=== PATIENT | female | born 1985 | race Caucasian/White ===

== ENCOUNTER 2024-02-11 11:40 | Emergency (ER) | payer BC, SELFPAY ==
[2024-02-11 11:49] VITALS: BP 134/95
[2024-02-11 12:28] VITALS: BMI 34.4
[2024-02-11 12:32] VITALS: BP 127/75
[2024-02-11 12:47] LABS: % Basophils 0.3 % (0-2); % Eosinophils 0.4 % (0-6); % Immature Granulocytes 0.3 % (0-0.5); % Lymphocytes 21.8 % (20.5-51.1); % Monocytes 6.8 % (1.7-9.3); % Neutrophils 70.4 % (42.2-75.2); Absolute Monocytes 0.6 10^3/uL (0.1-0.6); Absolute Neutrophils 6.6 10^3/uL (1.4-6.5); Hemoglobin 13.3 g/dL (12.0-16.0); Mean Corpuscular Hgb 32.1 pg (27.0-31.0); Mean Corpuscular Volume 91.8 fL (81.0-99.0); Nucleated Red Blood Cells % 0 %; Platelet Count 282 10^3/uL (130-400); Red Blood Cell Count 4.14 10^6/uL (4.20-5.40); Red Cell Dist. Width 12.8 % (11.5-14.5); White Blood Cell Count 9.4 10^3/uL (4.8-10.8)
[2024-02-11 13:00] VITALS: BP 124/86
[2024-02-11 13:04] LABS: ALT (SGPT) 16 U/L (0-35); AST (SGOT) 20 U/L (14-36); Albumin 4.7 g/dl (3.5-5.0); Alkaline Phosphatase 86 U/L (38-126); Blood Urea Nitrogen 4 mg/dl (7-17); Calcium 9.5 mg/dl (8.4-10.2); Carbon Dioxide 24 mmol/L (22-30); Chloride 103 mmol/L (98-107); Estimated Creatinine Clearance 90 ml/min; Glucose 88 mg/dl (70-99); Potassium 4.1 mmol/L (3.5-5.1); Sodium 140 mmol/L (135-145); Total Bilirubin 0.2 mg/dl (0.2-1.3); Total Protein 7.1 g/dl (6.3-8.2); eGFR > 60.00
[2024-02-11 13:11] LABS: Troponin I < 0.012 ng/ml
--- NOTE | 2024-02-11 13:15 | ED.GENMED ---
History of Present Illness
General
Chief Complaint: Chest Pain
Source: patient
Exam Limitations: none
Time Seen by Provider: 02/11/24 12:49
Nursing documentation reviewed up to this point in time: agreed with
History of Present Illness
History of Present Illness:
38-year-old female presents emergency room complaining of left-sided pain since yesterday. She feels like a pinching and achiness. She saw urgent care, and had a chest x-ray and EKG that were normal. Feels better when she turns on her side.
Past History
Past History
ED Past Medical History: None
ED Past Surgical History: None
Social History
Tobacco: Non-smoker
Alcohol: None
Drug: None
Personal:
Living: with family
Review of Systems
Review of Systems
Allergies reviewed?: Yes
All Other Systems: Not applicable
Constitutional: Reports no symptoms
EENT: Reports no symptoms
Respiratory: Reports cough
Cardiac: Reports chest pain
ABD/GI: Reports no symptoms
: Reports no symptoms
Musculoskeletal: Reports no symptoms
Skin: Reports no symptoms
Neurological: Reports no symptoms
Endocrine: Reports no symptoms
Hematologic/Lymphatic: Reports no symptoms
Psychiatric: Reports no symptoms
Phy Exam
Physical Exam
Physical Exam:
Physical Exam
General: no apparent distress, not acutely ill
Neck: supple. no meningeal signs. normal posterior pharynx
Heart: s1/s2 regular rate and rhythm, no murmur. equal radial
pulses.
HEENT: Pupils equal round reactive to light, EOMI
Lungs: no acute respiratory distress. clear bilaterally
Abdomen: normal bowel sounds. not tender. no CVAT
Neuro: alert and oriented. no focal neurological deficits cranial nerves II through XII intact
Skin: no rash
Psychiatric: well kept. interactive and cooperative
Extremities: no edema. no calf tenderness. negative homans. good distal pulses
Scores
Heart Score for Chest Pain Patients
STEMI patient?: No
History: Slightly or Non-Suspicious
ECG: Normal
Age: </= 45 years
Risk Factors: No Risk Factors
Troponin: </= Normal Limit
Heart Score for Chest Pain Patients: 0
Heart Score Risk: 2.5% MACE over next 6 weeks
Course
Orders/Labs/Results
Orders:
Orders
02/11/24 11:41
EKG [Electrocardiogram (*1)] Urgent
Reason for Study: Chest Pain
02/11/24 11:42
EKG- Treatment ONCE
02/11/24 12:41
CMP [Comprehensive Metabolic Panel] Urgent
Complete Blood Count/With Diff Urgent
Troponin I Urgent
02/11/24 13:25
D-Dimer Urgent
Comment: rule out PE
02/11/24 13:26
D-Dimer Urgent
Abnormal Lab Results
02/11/24
12:41
RBC 4.14 L 10^6/uL
(4.20-5.40)
MCH 32.1 H pg
(27.0-31.0)
Absolute Neuts (auto) 6.6 H 10^3/uL
(1.4-6.5)
BUN 4 L mg/dl
(7-17)
02/11/24 12:41
02/11/24 12:41
Vital Signs
Initial and Last Documented VS:
Initial Vital Signs
Temp Pulse Resp BP Pulse Ox
98.2 F 76 16 134/95 98
02/11/24 11:49 02/11/24 11:49 02/11/24 11:49 02/11/24 11:49 02/11/24 11:49
Last Documented Vital Signs
Temp Pulse Resp BP Pulse Ox
98.2 F 68 17 124/86 98
02/11/24 11:49 02/11/24 13:30 02/11/24 13:30 02/11/24 13:00 02/11/24 13:30
MDM/Problems Addressed
Differential Diagnosis Includes:
Pulmonary embolism, ACS pneumonia
MDM/Problems Addressed:
38-year-old female with left-sided chest discomfort, doubt ACS or PE. Lungs clear, troponin and D-dimer negative. Symptoms ongoing since yesterday. Stable for discharge.
*Pulse Oximetry
Patient hypoxic: no
*EKG
Interpreted by ED Provider?: Yes
EKG Intrepretation Date: 02/11/24
EKG Intrepretation Time: 11:47
Interpretation: normal
Comparison EKG: no comparison EKG present
Heart Rate: 63
Rate: normal
Rhythm: sinus
Rattan: normal axis
Interval: normal interval
QRS Pattern: normal QRS
Ischemia: no ischemia
*Value Stream Coach Interpretation
Rate: Value Stream Coach- N/A
*Critical Care Note
Total Time (30-74mins, 75-104mins- exclusive of procedures): Not Applicable
Patient Management
Social determinants of health affecting care: Living situation and Strong social support
Escalation/DeEscalation of care consider admission/obs:
Admit not indicated
ED Attending Note
-
Portions of this chart may have been created with voice recognition software.� Occasional wrong word or��sound alike� substitutions may have occurred due to the inherent limitations of voice recognition software.
Discharge Plan
Departure
Patient Disposition: Home (Routine Discharge)
Date of Disposition: 02/11/24
Time of Disposition: 14:10
Patient with high blood pressure during this ER visit?: Yes
Condition: Good
Discharge Problem:
Chest pain
Instructions: BLOOD PRESSURE, Chest Pain PCP Follow Up
Interventions
Interventions:
*Risk Screen - Suicide Last Done: 02/11/24 11:49
*General Assessment Last Done: 02/11/24 11:49
*Neglect/Abuse Screening Last Done: 02/11/24 11:49
ED- Fall Risk Assessment Last Done: 02/11/24 12:28
*ED COVID-19 Vaccine History Last Done: 02/11/24 12:28
ED- Cardiac Assessment Last Done: 02/11/24 12:28
Discharge Date and Time
Print Language: MACEDONIAN
[2024-02-11 14:00] VITALS: BP 118/78
[2024-02-11 14:05] LABS: D-Dimer < 0.27 ug/mlFEU (0.00-0.50)
== END 2024-02-11 14:31 | disposition home or self-care (01) ==
LOC: EMR 11:40
PROVIDERS: EMERGENCY PHYSICIAN Emergency Medicine; FAMILY PHYSICIAN Family Medicine
DX: R07.89 Other chest pain (principal)
CPT/HCPCS: 99284; 80053; 84484; 85025; 85379; 93005